=== PATIENT | female | born 1950 | race Caucasian/White ===

== ENCOUNTER 2017-12-04 09:59 | Day surgery (SDC) | payer MEDICARE, OTHER ==
[~2017-12-04] VITALS: Ht 160 cm; Wt 64.2 kg
[2017-12-04] MEDS ORDERED: DOXYCYCLINE HY100 MG PO (11:00)
[2017-12-04] MEDS ORDERED: FOSAMAX 70MG TA70 MG PO (11:00)
[2017-12-04 11:02] VITALS: BP 124/65; PULSE 63; TEMP 98.4
[2017-12-04] MEDS ORDERED: SYNTHROID 0.0.025 MG PO (11:02)
[2017-12-04 13:17] VITALS: BP 101/72; PULSE 65; TEMP 97.7
[2017-12-04 13:30] VITALS: BP 96/51; PULSE 59
[2017-12-04 13:45] VITALS: BP 101/52; PULSE 54
[2017-12-04 14:00] VITALS: BP 116/66; PULSE 58
[2017-12-04 14:30] VITALS: BP 99/46; PULSE 74
== END 2017-12-04 15:00 | disposition home or self-care (01) ==
LOC: SDCO 09:59
DX: R10.13 Epigastric pain (principal); R07.89 Other chest pain; K59.00 Constipation, unspecified
CPT/HCPCS: J2250; J3010; J7030

== ENCOUNTER → 2021-10-29 | Outpatient (CLI) | payer MEDICARE, OTHER ==
[~2021-10-29] MED LIST: DOXYCYCLINE HY100 MG PO; FOSAMAX 70MG TA70 MG PO; SYNTHROID 0.0.025 MG PO
== END ==
LOC: COL.VAS 12:13
DX: M71.22 Synovial cyst of popliteal space [Baker], left knee (principal); I83.812 Varicose veins of left lower extremity with pain

== ENCOUNTER → 2022-10-22 | Outpatient (CLI) | payer MEDICARE, OTHER ==
[~2022-10-22] MED LIST changes: +AVALIDE 12.5 MG1 TA1 PO; +CELEXA 20MG20 MG/TAB PO; +CRESTOR40 MG PO; +D3-5050000 IU PO; +EPA FISH OIL1 SGL PO; +FIORICET 325 MG1 TA1 PO; +MAGNESIUM250 M1 PO; +NATURAL MAGNES200 MG PO; +ONE-A-DAY WOMEN1 TAB PO; +OSCAL 500 TAB500 MG PO; +PRIL40 PO; +PROBIOTIC 2 BI1 EACH PO; +TOPROL XL 50MG50 MG PO; +VITAMIN D 400400 IU PO
== END ==
LOC: COL.RAD 07:44
DX: K21.9 Gastro-esophageal reflux disease without esophagitis (principal); K58.1 Irritable bowel syndrome with constipation; T17.308A Unspecified foreign body in larynx causing other injury, initial encounter
CPT/HCPCS: A9541

== ENCOUNTER → 2022-11-07 | Outpatient (CLI) | payer MEDICARE, OTHER ==
[~2022-11-07] VITALS: Ht 160 cm; Wt 69.0 kg
[~2022-11-07] MED LIST changes: +FISH OIL 1000MG1 CAP PO; +FLONASEALLERGY NS; +FOSAMAX5 MG PO; +MULTIPLE VITAMI1 TA5 PO; +SYNTHROID0.075 MG/T PO; +VIACTIV PO; +VITAMIN D31000 I1 PO; +VITAMIN D31000 IU PO
[2022-11-07 13:05] VITALS: BP 145/73; PULSE 62; TEMP 98
[2022-11-07 14:20] VITALS: BP 116/70; PULSE 70
[2022-11-07 14:35] VITALS: BP 139/80; PULSE 63
[2022-11-07 14:49] VITALS: BP 145/79; PULSE 60
== END ==
LOC: COL.RAD 12:27
DX: R53.83 Other fatigue (principal)
CPT/HCPCS: A9575; J2704

== ENCOUNTER → 2022-12-01 | Outpatient (CLI) | payer MEDICARE, OTHER | LOC: COL.RAD 09:39 | DX: R10.9 Unspecified abdominal pain (principal); R11.2 Nausea with vomiting, unspecified | CPT/HCPCS: A9537; J2805 ==

== ENCOUNTER 2023-08-04 12:14 | Inpatient (IN) | payer MEDICARE, OTHER ==
[~2023-08-04] VITALS: Ht 157.5 cm; Wt 70.0 kg
[~2023-08-04 12:14] MED LIST changes: +NORCO 325 MG-51 TAB PO; +PEPCID 20MG TAB20 MG PO
[2023-10-16] MEDS ORDERED: LR 1,000 ML IV SCH (09:15)
[2023-10-19] VITALS (9 sets, daily range): BP systolic 89–110; BP diastolic 43–69; PULSE 75–93; TEMP 97.4–97.7
[2023-10-19] MEDS ORDERED: Lidocaine 1% w EPI (1:100,000) 20 ML Multi-Dose VIAL ONE (09:07)
[2023-10-19] MEDS ORDERED: Midazolam 2 MG/2 ML VIAL ONE (09:10)
[2023-10-19] MEDS ORDERED: fentaNYL 50 MCG/ML 2 ML VIAL ONE (09:10)
[2023-10-19] MEDS ORDERED: dexAMETHasone 10 MG/ML VIAL ONE (09:12)
--- NOTE | 2023-10-19 09:14 | NUR ---
0733 Patient ambulatory to bay 2 with steady gait, breathing even and unlabored. Patient is alert and oriented. Consents reviewed and signed by patient. IV established. LR infusing via dial a flow. Knee high jennifer hose applied to right leg. Left knee cleansed with chlorhexidine scrub. Call light in reach. Warm blanket provided.
[2023-10-19] MEDS ORDERED: ePHEDrine 50 MG/ML VIAL ONE (09:54)
[2023-10-19] MEDS ORDERED: Tranexamic Acid 1,000 MG/10 ML VIAL ONE (10:01)
[2023-10-19] MEDS ORDERED: NS 10 ML VIAL IJ ONE (10:30)
[2023-10-19] MEDS ORDERED: Morphine 4 MG/ML VIAL IV\\IM ONE (10:30)
[2023-10-19] MEDS ORDERED: Thrombin Human (Recombinant) 5,000 UNITS VIAL TP ONE (10:30)
[2023-10-19] MEDS ORDERED: LR 1,000 ML IV ONE (10:38)
[2023-10-19] MEDS ORDERED: diphenhydrAMINE 50 MG/ML 1 ML VIAL ONE (10:43)
[2023-10-19] MEDS ORDERED: HYDROmorphone 2 MG/1 ML VIAL IV PRN (10:45)
[2023-10-19] MEDS ORDERED: fentaNYL 50 MCG/ML 2 ML VIAL IV PRN (10:45)
[2023-10-19] MEDS ORDERED: Ondansetron 4 MG/2 ML VIAL IV PRN ×2 (10:45→12:30)
[2023-10-19] MEDS ORDERED: Meperidine 50 MG/ML 1 ML VIAL IV PRN (10:45)
[2023-10-19] MEDS ORDERED: Ondansetron 4 MG/2 ML VIAL ONE (11:11)
[2023-10-19] MEDS ORDERED: Magnes Hydrox (MOM) 80 MG/ML 30 ML CUP PO PRN (12:30)
[2023-10-19] MEDS ORDERED: Mag/Al Hydrox/Simeth Susp 30 ML CUP PO PRN (12:30)
[2023-10-19] MEDS ORDERED: Bisacodyl 5 MG TAB PO PRN (12:30)
[2023-10-19] MEDS ORDERED: NS 1,000 ML IV SCH (12:30)
[2023-10-19] MEDS ORDERED: Naloxone 0.4 MG/ML VIAL IV PRN (12:30)
[2023-10-19] MEDS ORDERED: Acetaminophen 500 MG TAB PO PRN (12:30)
[2023-10-19] MEDS ORDERED: Morphine 4 MG/ML VIAL IV PRN (12:30)
[2023-10-19] MEDS ORDERED: Acetaminophen 500 MG TAB PO SCH (13:27)
--- NOTE | 2023-10-19 14:35 | NUR ---
Pt tolerating ice chips and crackers well. Pt requesting pain meds. Administered [place] as per EMAR. LUZ Morgan, was at bedside and ordered fluid bolus for hypotension. Fluid bolus administered. Offered Pt jello or something else to eat, Pt declined at this time. Physical Therapy asked if they could work with Pt to move knee. Discussed Pt just received pain medication and has some hypotension. Maybe come back in 30 mins. PT aggreed.
--- NOTE | 2023-10-19 14:44 | NUR ---
Received Pt from SHADOWGRAPH OPERATOREDVIN Maria. Pt laying in bed and drowsy. VSS. BPs running 100s/50s. Pt is oriented x4. S1S2 and clear lung sounds.ABD is flat, soft and non-tender. Active bowel sounds in all quadrants. Palpable pulses in all extremities. 20G IV in R wrist - LRS running from PACU. L Knee Sx site is CDI iwth TENA wrap. Hemovac is in place and empty. PACU emptied 30cc out prior to coming up to floor. Pt denies pain, n/v. Pt has SCDs on. Offered Pt ice water and ice chips. Bed alarm is on and call light in reach. Alon (Bobby) at bedside.
[2023-10-19] MEDS ORDERED: NS 500 ML IV ONE (15:15)
[2023-10-19] MEDS ORDERED: ceFAZolin 1 G in Water For Injection,Sterile 10 ML IV SCH ×2 (16:00→18:00)
--- NOTE | 2023-10-19 16:30 | NUR ---
PATIENT REPORTS SPINAL IS WEARING OFF FAST AND PAIN PILL HASNT HELPED MUCH. PATIENT SHIFTING IN BED AND VERY RESTLESS. GAVE PRN IV MORPHINE. FLUID BOLUS COMPLETE. B/P IN 90'S SYSTOLIC. ASYMPTOMATIC. IV FLUIDS INFUSING AT A 100CC/HR PER ORDERS. PATIENT RESTING WITH HOB DOWN.
--- NOTE | 2023-10-19 17:35 | NUR ---
BP: 121/60. Pt in Trendelenberg. Pt reported pain - elevated L leg. Pt requested food. Gave Pt jello to try and showed Pt and family how to order from cafeteria. No other Pt requests or concerns at this time.
--- NOTE | 2023-10-19 19:19 | NUR ---
report received from sana au. pt resting in bed, equal and unlabored breaths noted. grandson at bedside. no outward signs of pain present. post op vitals continue wnl. fall precautions in place. call light in reach. all needs met at this time.
[2023-10-19] MEDS ORDERED: Sennosides/Docusate 8.6-50 MG TAB PO SCH (21:00)
[2023-10-19] MEDS ORDERED: Naproxen 250 MG TAB PO SCH (21:00)
[2023-10-19] MEDS ORDERED: Ascorbic Acid 500 MG TAB PO SCH (21:00)
--- NOTE | 2023-10-19 21:48 | NUR ---
shift assessment complete, see documentation. pt tolerated hs meds well. pt reporting prn norco administered earlier has relieved her pain. pt resting in bed. fall precautions in place. call light in reach. all needs met at this time.
[2023-10-20] VITALS (11 sets, daily range): BP systolic 94–112; BP diastolic 43–61; PULSE 67–83; TEMP 97.4–98.9
--- NOTE | 2023-10-20 00:43 | NUR ---
pt got upset with this nurse for not waking her up to medicate her since previous prn medication. educated pt that she was asleep and snoring each time i went to check on her after pain medication was administered. pt educated that since order is prn medication she must call and let me know she is in pain to recieve the medication. pt got very upset stating "well youre no help. i take them every 4 hours at home". pt educated that we also need to watch her blood pressure along with pain medications since she had a hypotensive episode and are trying to avoid morphine again. pt stated "i dont care. i want the morphine too". pt educated with a systolic bp of 101 that i felt the prn norco was a safer medication. pt continued to be upset and whisper things under her breath. prior to med administration pt was asked if she was in pain and responded with "no". i then informed her that there is no need for pain medications if she is not in pain. pt then got upset and stated "well i am in pain". prn norco administered per orders. call light in reach. all needs met at this time.
--- NOTE | 2023-10-20 01:00 | NUR ---
ASSUMED CARE OF PT.
--- NOTE | 2023-10-20 01:18 | NUR ---
PT REPORTS CONTINUED PAIN TO LT LEG, THIGH AREA. DISCUSSED USE OF TOURNIQUET IN THE OR. REPEATED NORCO AT THIS TIME. IVF INFUSING TO RT WRIST WITHOUT PROBLEM. ICE PACK REPLACED, HEMOVAC EMPTIED FOR 110CC BLOODY DRAINAGE, PLACED BACK TO COMPRESSION.
--- NOTE | 2023-10-20 05:35 | NUR ---
PT GIVEN SCHEDULED AM MEDS INCLUDING NORCO FOR LT KNEE PAIN. REFUSED ES TYLENOL AT THIS TIME.
[2023-10-20 06:24] LABS: HEMOGLOBIN 10.4 g/dl (12.5-16.0)
[2023-10-20 06:25] LABS: CALCIUM 7.9 mg/dL (8.4-10.2); CREATININE, serum 0.94 mg/dL (0.57-1.11); POTASSIUM 4.7 mmol/L (3.5-4.5)
[2023-10-20 06:26] LABS: HEMATOCRIT 31.8 % (37.0-47.0)
--- NOTE | 2023-10-20 07:06 | NUR ---
PT REQUESTING PAIN MEDS. PROVIDED EDUCATION ON PRN PAIN MEDICATIONS. GAVE EXTRA DOSE AT THIS TIME.
--- NOTE | 2023-10-20 07:49 | NUR ---
PT UP TO BR WITH SBA, PT VOIDED AND THEN AMBULATED TO RECLINER. POSITIONED FOR COMFORT. REVIEWED PAIN PROTOCOL WITH PT. SHORTLY AFTER PT ASKING STUDENT NURSE FOR PAIN MEDICATION. CONTACTED REYES PINTO FOR [facility] REVIEW.
[2023-10-20] MEDS ORDERED: Multivitamin TAB PO SCH (09:00)
[2023-10-20] MEDS ORDERED: Magnes Hydrox (MOM) 80 MG/ML 30 ML CUP PO SCH (09:00)
[2023-10-20] MEDS ORDERED: Cholecalciferol (Vit D3) 1000 Units TAB PO SCH (09:00)
[2023-10-20] MEDS ORDERED: Famotidine 20 MG TAB PO SCH (09:00)
[2023-10-20] MEDS ORDERED: oxyCODONE 5 MG TAB PO PRN (09:15)
--- NOTE | 2023-10-20 09:37 | NUR ---
AGREE WITH STUDENT ASSESSMENTS THIS AM.
--- NOTE | 2023-10-20 10:32 | NUR ---
material preparation worker met with patient to discuss discharge planning. Patient lives by herself in [place], [place]. Points of contact are Heriberto (grandson) P# [phone] and Cordell (son) P# [phone]. PCP is Dr. Riggins, pharmacy is [facility] in [place]. No issues affording medications at this time. DPOA is Rick. DME is a walker. Patient reports she is independent with ADLS and is able to transport herself to and from appointments. SW discussed PT/OT recommendations of HH or OP PT. Patient reports she is already set up for OP PT at [facility]. Patient would like to return home with OP Pt. Discharge plan: HOme with OP Pt
--- NOTE | 2023-10-20 10:40 | NUR ---
cargo worker contacted [facility] and confirmed patient has outpatient PT scheduled for Thursday at 1 pm. SW notified equal opportunity director to add this appointment in her discharge orders when she is medically ready.
--- NOTE | 2023-10-20 12:21 | NUR ---
D: Initial visit: Water Pollution Control Inspector stopped by room on rounds. Pt was resting and sitting in her chair with her grandson in the room. A: Pt was in good spirits and has no needs right now. Pt and grandson appreciated the visit. P: Water Pollution Control Inspector informed pt and her grandson that if they needed anything from the patient care associate area to let their nurse know. Water Pollution Control Inspector will follow up as needed.
--- NOTE | 2023-10-20 12:49 | NUR ---
PT UP TO BR WITH SBA X1, VOIDED AND RETURNED TO BED. EATING AND DRINKING. C/O MILD NAUSEA AFTER USING BR.
[2023-10-20] MEDS ORDERED: HYDROcodone/Acetaminophen 10-325 MG TAB PO SCH (13:45)
--- NOTE | 2023-10-20 20:00 | NUR ---
PATIENT IS A&O. VSS. REPORTS ABD TENDERNESS, GAVE PRN MOTRIN WITH HS MEDS. NO C/O N/V. PATIENT ON SCHEDULED PAIN MEDS. PATIENT HAS A LOW TOLERANCE FOR PAIN AND HAS BEEN STRUGGLING WITH HYPOTENSION ASSOCIATED WITH NARCOTICS. RIGHT WRIST IV TO INT. GENERAL DIET. LEFT KNEE DSG IS CD&I WITH ACEWRAP IN PLACE. HEMOVAC TO COMPRESSION WITH SMALL AMOUNTS OF BLOODY DRAINAGE. ORTHO ORDERED HEMOVAC TO BE DC'D TODAY HOWEVER, PATIENT REFUSED TO LET STAFF OR ORTHO PA PULL HEMOVAC. NUSING EDUCATED PATIENT, PLAN IS TO TRY TO PULL HEMOVAC IN AM. SBA WITH WALKER TO BATHROOM. PT/OT CONSULTED. HEAD TO TOE ASSESSMENT COMPLETE. NO OTHER NEEDSA THIS TIME. CALL LIGHT IN REACH.
[2023-10-21] VITALS (8 sets, daily range): BP systolic 102–114; BP diastolic 61–69; PULSE 60–71; TEMP 97.9–98
[2023-10-21 06:54] LABS: HEMATOCRIT 29.8 % (37.0-47.0); HEMOGLOBIN 9.7 g/dl (12.5-16.0)
[2023-10-21 07:02] LABS: CALCIUM 8.6 mg/dL (8.4-10.2); CREATININE, serum 1.18 mg/dL (0.57-1.11); POTASSIUM 4.5 mmol/L (3.5-4.5)
[2023-10-21] MEDS ORDERED: ASPIRIN 81M81 MG/TA2 PO (10:00)
[2023-10-21] MEDS ORDERED: CEPHALEXIN500 M1 PO ×2 (10:00→10:01)
[2023-10-21] MEDS ORDERED: NORCO 325 MG-51 TAB PO (10:01)
[2023-10-21] MEDS ORDERED: ULTRAM 50MG TAB50 MG PO (10:01)
--- NOTE | 2023-10-21 10:40 | NUR ---
Discontinued Hemovac from patient that had minimal drainage. The output was 40mL and patient tolerated it well and reported no pain.
--- NOTE | 2023-10-21 11:44 | NUR ---
agree with student assessments this shift. Dr Moya in to see pt this am. plan on discharge later this pm.
--- NOTE | 2023-10-21 13:23 | NUR ---
Initial visit; Patient looking somewhat forlorn and depressed. [employer] Portal Consultant attempted to get her to talk and finally when she said shoulder and knee surgeries aren't for sissies she received a chuckle from Raven. [employer] Portal Consultant then received a couple words and a "thank you" for stopping by and wishing her well and offering God's blessings.
--- NOTE | 2023-10-21 13:51 | NUR ---
kiln worker attended interdisciplinary clinical rounding with Dr. Johnson. Dr Johnson reports patient has her draing in still and it will depend on Dr. Moya on if patient is ready for discharge. Discharge plan: home with OP Pt
--- NOTE | 2023-10-21 14:00 | NUR ---
DISCHARGE INSTRUCTIONS REVIEWED WITH PATIENT AND FAMILY. PT LEFT PER WHEEL CHAIR WITH STAFF.
== END 2023-10-21 14:01 | disposition home or self-care (01) | DRG 468 ==
LOC: SDCO 08-17 07:30 → EDSTATUS 09-21 07:30 → SDCO 09-21 07:30 → SURG 09-21 07:30 → INPTSU 10-19 07:17 → SURG 10-19 07:30
PROVIDERS: Physician Assistant; ADMIT Orthopaedic Surgery
PROC: 0SRD0J9 Replacement of Left Knee Joint with Synthetic Substitute, Cemented, Open Approach (ICD-10-PCS; 2023-10-19)
PROC: 0SPD0JZ Removal of Synthetic Substitute from Left Knee Joint, Open Approach (ICD-10-PCS; principal; 2023-10-19 10:15)
DX: T84.023A Instability of internal left knee prosthesis, initial encounter (principal); Y83.8 Other surgical procedures as the cause of abnormal reaction of the patient, or of later complication, without mention of misadventure at the time of the procedure; I95.9 Hypotension, unspecified; M47.9 Spondylosis, unspecified; K21.9 Gastro-esophageal reflux disease without esophagitis; M51.36 Other intervertebral disc degeneration, lumbar region; G89.29 Other chronic pain; E03.9 Hypothyroidism, unspecified; Z79.899 Other long term (current) drug therapy; Z79.890 Hormone replacement therapy; Z88.6 Allergy status to analgesic agent; Z88.5 Allergy status to narcotic agent; Z88.0 Allergy status to penicillin; Z88.8 Allergy status to other drugs, medicaments and biological substances; Z86.12 Personal history of poliomyelitis
CPT/HCPCS: A9284; C1713; C1776; J0690; J1100; J1200; J2250; J2270; J2405; J2704; J2795; J3010; J7030; J7040; J7120

== ENCOUNTER 2023-10-30 14:15 | Outpatient (RCR) | payer MEDICARE, OTHER ==
[~2023-10-30 14:15] MED LIST changes: +ASPIRIN 81M81 MG/TA2 PO; +CEPHALEXIN500 M1 PO; +ULTRAM 50MG TAB50 MG PO
== END 2023-11-01 | disposition home or self-care (01) ==
LOC: WSPT
DX: Z96.652 Presence of left artificial knee joint (principal)